=== PATIENT | male | born 1965 | race Caucasian/White ===

== ENCOUNTER 2017-02-25 09:51 | Inpatient (IN) | payer MEDICARE, MEDICAID ==
[~2017-02-25 09:51] MED LIST: ASPIRIN325 MG PO; ATENOLOL100 MG PO; BACLOFEN10 M1 PO; BYSTOLIC10 M1 PO; COPAXONE IM; COPAXONE20 MG/1 ML SC; COZAAR100 MG PO; CYMBALTA60 MG PO; FISH OIL 1,0001 CA1 PO; GINKGO BILOBA PO; GLIPIZIDE XL10 MG PO; GLUCOPHAGE1000 MG; GLUCOPHAGE1000 MG PO; GLUCOTROL10 MG; GLYBURIDE5 MG; IRON325 M1 PO; IRON325 M3 PO; LANTUS100 U/ML SC; LASIX40 M1 PO; LIPITOR20 MG; LIPITOR80 M1 PO; LISINOPRIL10 MG; LISINOPRIL40 MG PO; LUNESTA3 MG PO; NATURAL VITA100 UNIT PO; NORCO 5/325 TAB1 TAB PO; NORVASC10 M2 PO; PLAVIX75 MG PO; PRAVACHOL40 MG; REQUIP0.5 M1 PO; RESTORIL30 M1 PO; SKELAXIN PO; TRAMADOL HCL50 MG PO; TRESIBA FL200 UNIT/1 SC; VENTOLIN HFA18 GM IH; VIAGRA100 MG PO; VITAMIN C500 M3 PO; VITAMIN D1000 UNI3 PO
[2017-02-25 10:31] LABS: BASO % 0.1 % (0-2); EOS % 0.1 % (0-7); HCT-HEMATOCRIT 38.1 % (36.0-53.5); HGB-HEMOGLOBIN 12.3 gm/dl (13.5-17.0); IMMATURE GRANULOCYTES ABSOLUTE 0.05 tho/cmm (0-0.03); IMMATURE GRANULOCYTES PERCENT 0.2 % (0-0.3); LYMPH % 3.9 % (20-45); LYMPH ABSOLUTE COUNT 0.8 tho/cmm (0.8-4.5); MCH (MEAN CORPUSCULAR HGB) 23.9 pg (28.0-32.0); MCHC MEAN CORPUSCULAR HGB CONC 32.3 % (32.0-36.0); MCV (MEAN CELL VOLUME) 74.1 fl (82.0-96.0); MEAN PLATELET VOLUME 11.6 cmc (9.4-12.4); MONO % 8.8 % (0-12); MONOCYTE ABSOLUTE COUNT 1.8 tho/cmm (0.0-1.2); NEUTROPHIL ABSOLUTE COUNT 17.5 tho/cmm (1.6-8.0); NEUTROPHIL-AUTOMATED 17.5 tho/cmm (1.6-8.0); NEUTROPHILS % 86.9 % (40-80); PLATELET COUNT 209 tho/cmm (150-450); RED BLOOD COUNT 5.14 mil/cmm (4.40-5.70); RED CELL DISTRIBUTION WIDTH 15.2 % (12.4-16.4); WHITE BLOOD COUNT 20.1 tho/cmm (4.0-10.0)
[2017-02-25 10:32] LABS: KETONE-BETA (WHOLE BLOOD) 0.4 mmol/L (0.0-0.6)
[2017-02-25] MEDS ORDERED: PRINIVIL10 M1 PO (10:37)
[2017-02-25] MEDS ORDERED: VITAMIN D31000 UNI4 PO (10:39)
[2017-02-25 10:56] LABS: ALB/GLOB RATIO 0.8 (0.8-2.0); ALBUMIN 3.8 g/dl (3.5-5.0); ALKALINE PHOSPHATASE 120 U/L (33-138); ALT/SGPT 21 U/L (12-78); AST/SGOT 18 U/L (10-40); BILIRUBIN,TOTAL 0.4 mg/dl (0.0-1.5); BLOOD UREA NITROGEN 67 mg/dl (6-24); CALCIUM 9.1 mg/dl (8.5-10.5); CARBON DIOXIDE-VENOUS 22 mmol/L (22-32); CHLORIDE 99 mmol/l (96-110); GLUCOSE 192 mg/dL (70-110); SODIUM 135 mmol/L (135-145); eGFR VALUE FOR BLACK 5 mL/Min
[2017-02-25 10:58] LABS: ANION GAP 20 mmol/L (0-20)
[2017-02-25 10:59] LABS: POTASSIUM 6.3 mmol/L (3.7-5.1)
[2017-02-25] MEDS ORDERED: FERRIC CITRATE210 MG PO (11:22)
[2017-02-25] MEDS ORDERED: OXYCODONE-ACET1 EAC3 PO (11:24)
[2017-02-25] MEDS ORDERED: PLAVIX75 M1 PO (11:25)
[2017-02-25] MEDS ORDERED: LIPITOR80 M1 PO (11:27)
[2017-02-25 23:01] LABS: PROCALCITONIN 0.52 ng/ml (0.05-0.09)
[2017-02-26 06:18] LABS: BASO % 0.2 % (0-2); EOS % 0.2 % (0-7); HCT-HEMATOCRIT 36.7 % (36.0-53.5); HGB-HEMOGLOBIN 11.7 gm/dl (13.5-17.0); IMMATURE GRANULOCYTES ABSOLUTE 0.02 tho/cmm (0-0.03); IMMATURE GRANULOCYTES PERCENT 0.1 % (0-0.3); LYMPH % 10.5 % (20-45); LYMPH ABSOLUTE COUNT 1.5 tho/cmm (0.8-4.5); MCH (MEAN CORPUSCULAR HGB) 23.5 pg (28.0-32.0); MCHC MEAN CORPUSCULAR HGB CONC 31.9 % (32.0-36.0); MCV (MEAN CELL VOLUME) 73.7 fl (82.0-96.0); MEAN PLATELET VOLUME 11.5 cmc (9.4-12.4); MONO % 10.2 % (0-12); MONOCYTE ABSOLUTE COUNT 1.4 tho/cmm (0.0-1.2); NEUTROPHILS % 78.8 % (40-80); PLATELET COUNT 182 tho/cmm (150-450); RED BLOOD COUNT 4.98 mil/cmm (4.40-5.70); RED CELL DISTRIBUTION WIDTH 15.2 % (12.4-16.4)
[2017-02-26 06:27] LABS: BLOOD UREA NITROGEN 34 mg/dl (6-24); CALCIUM 8.8 mg/dl (8.5-10.5); CARBON DIOXIDE-VENOUS 26 mmol/L (22-32); CHLORIDE 97 mmol/l (96-110); GLUCOSE 167 mg/dL (70-110); MAGNESIUM 2.3 mg/dl (1.8-2.6); PHOSPHOROUS 5.3 mg/dl (2.5-4.9); SODIUM 133 mmol/L (135-145); eGFR VALUE FOR BLACK 9 mL/Min
[2017-02-26 06:30] LABS: ANION GAP 15 mmol/L (0-20); CREATININE 7.15 mg/dl (0.60-1.30); POTASSIUM 5.3 mmol/L (3.7-5.1)
[2017-02-26 10:08] LABS: ALBUMIN 3.8 g/dl (3.5-5.0); ALKALINE PHOSPHATASE 128 U/L (33-138); ALT/SGPT 24 U/L (12-78); ANION GAP 19 mmol/L (0-20); AST/SGOT 20 U/L (10-40); BILIRUBIN,TOTAL 0.4 mg/dl (0.0-1.5); BLOOD UREA NITROGEN 34 mg/dl (6-24); CALCIUM 8.5 mg/dl (8.5-10.5); CARBON DIOXIDE-VENOUS 24 mmol/L (22-32); CHLORIDE 99 mmol/l (96-110); CREATININE 6.95 mg/dl (0.60-1.30); GLUCOSE 158 mg/dL (70-110); POTASSIUM 5.4 mmol/L (3.7-5.1); SODIUM 137 mmol/L (135-145); eGFR VALUE FOR BLACK 10 mL/Min
[2017-02-26 10:28] LABS: TSH-THYROID STIMULATING HORM. 0.96 uIU/ml (0.40-3.80)
[2017-02-26] MEDS ORDERED: SKELAXIN800 M3 PO (17:06)
[2017-02-27 06:07] LABS: ANION GAP 20 mmol/L (0-20); CARBON DIOXIDE-VENOUS 22 mmol/L (22-32); CHLORIDE 95 mmol/l (96-110); MAGNESIUM 2.4 mg/dl (1.8-2.6); POTASSIUM 5.7 mmol/L (3.7-5.1); SODIUM 131 mmol/L (135-145); eGFR VALUE FOR BLACK 6 mL/Min
[2017-02-27 06:09] LABS: BLOOD UREA NITROGEN 67 mg/dl (6-24); CREATININE 9.86 mg/dl (0.60-1.30); GLUCOSE 268 mg/dL (70-110)
[2017-02-28 05:49] LABS: INR 1.1 INR (0.9-1.1); PROTHROMBIN TIME 12.4 SECONDS (9.0-13.6)
[2017-02-28 05:58] LABS: ANION GAP 22 mmol/L (0-20); BLOOD UREA NITROGEN 62 mg/dl (6-24); CALCIUM 8.8 mg/dl (8.5-10.5); CARBON DIOXIDE-VENOUS 23 mmol/L (22-32); CHLORIDE 95 mmol/l (96-110); CREATININE 8.41 mg/dl (0.60-1.30); GLUCOSE 267 mg/dL (70-110); PHOSPHOROUS 6.6 mg/dl (2.5-4.9); POTASSIUM 5.2 mmol/L (3.7-5.1); SODIUM 135 mmol/L (135-145); eGFR VALUE FOR BLACK 8 mL/Min
[2017-03-01 04:58] LABS: ANION GAP 23 mmol/L (0-20); BLOOD UREA NITROGEN 92 mg/dl (6-24); CALCIUM 8.2 mg/dl (8.5-10.5); CARBON DIOXIDE-VENOUS 20 mmol/L (22-32); CHLORIDE 93 mmol/l (96-110); GLUCOSE 343 mg/dL (70-110); POTASSIUM 5.9 mmol/L (3.7-5.1); SODIUM 130 mmol/L (135-145); eGFR VALUE FOR BLACK 6 mL/Min
[2017-03-02 04:20] LABS: HCT-HEMATOCRIT 28.1 % (36.0-53.5); HGB-HEMOGLOBIN 9.2 gm/dl (13.5-17.0); IMMATURE GRANULOCYTES ABSOLUTE 0.08 tho/cmm (0-0.03); IMMATURE GRANULOCYTES PERCENT 0.4 % (0-0.3); LYMPH % 3.1 % (20-45); LYMPH ABSOLUTE COUNT 0.6 tho/cmm (0.8-4.5); MCH (MEAN CORPUSCULAR HGB) 23.7 pg (28.0-32.0); MCHC MEAN CORPUSCULAR HGB CONC 32.7 % (32.0-36.0); MCV (MEAN CELL VOLUME) 72.4 fl (82.0-96.0); MEAN PLATELET VOLUME 11.7 cmc (9.4-12.4); MONO % 9.9 % (0-12); MONOCYTE ABSOLUTE COUNT 2.1 tho/cmm (0.0-1.2); NEUTROPHIL ABSOLUTE COUNT 18.1 tho/cmm (1.6-8.0); NEUTROPHIL-AUTOMATED 18.1 tho/cmm (1.6-8.0); NEUTROPHILS % 86.6 % (40-80); PLATELET COUNT 186 tho/cmm (150-450); RED BLOOD COUNT 3.88 mil/cmm (4.40-5.70); RED CELL DISTRIBUTION WIDTH 14.8 % (12.4-16.4); WHITE BLOOD COUNT 20.9 tho/cmm (4.0-10.0)
[2017-03-02 04:33] LABS: BLOOD UREA NITROGEN 77 mg/dl (6-24); CALCIUM 7.6 mg/dl (8.5-10.5); CARBON DIOXIDE-VENOUS 24 mmol/L (22-32); CHLORIDE 96 mmol/l (96-110); GLUCOSE 326 mg/dL (70-110); MAGNESIUM 1.8 mg/dl (1.8-2.6); SODIUM 133 mmol/L (135-145)
[2017-03-02 04:48] LABS: ANION GAP 18 mmol/L (0-20); CREATININE 6.96 mg/dl (0.60-1.30); POTASSIUM 4.9 mmol/L (3.7-5.1); eGFR VALUE FOR BLACK 9 mL/Min
[2017-03-03 07:02] LABS: HGB-HEMOGLOBIN 6.7 gm/dl (13.5-17.0)
[2017-03-03 07:46] LABS: PROCALCITONIN 0.47 ng/ml (0.05-0.09)
[2017-03-03 07:58] LABS: HGB-HEMOGLOBIN 6.7 gm/dl (13.5-17.0); IMMATURE GRANULOCYTES ABSOLUTE 0.23 tho/cmm (0-0.03); IMMATURE GRANULOCYTES PERCENT 0.8 % (0-0.3); LYMPH % 5.3 % (20-45); LYMPH ABSOLUTE COUNT 1.5 tho/cmm (0.8-4.5); MCH (MEAN CORPUSCULAR HGB) 24.1 pg (28.0-32.0); MCV (MEAN CELL VOLUME) 74.8 fl (82.0-96.0); MEAN PLATELET VOLUME 12.5 cmc (9.4-12.4); MONO % 6.8 % (0-12); MONOCYTE ABSOLUTE COUNT 1.9 tho/cmm (0.0-1.2); NEUTROPHIL ABSOLUTE COUNT 24.3 tho/cmm (1.6-8.0); NEUTROPHIL-AUTOMATED 24.3 tho/cmm (1.6-8.0); NEUTROPHILS % 87.1 % (40-80); PLATELET COUNT 183 tho/cmm (150-450); RED BLOOD COUNT 2.78 mil/cmm (4.40-5.70); RED CELL DISTRIBUTION WIDTH 14.9 % (12.4-16.4); WHITE BLOOD COUNT 27.9 tho/cmm (4.0-10.0)
[2017-03-03 07:59] LABS: HCT-HEMATOCRIT 20.8 % (36.0-53.5); MCHC MEAN CORPUSCULAR HGB CONC 32.2 % (32.0-36.0)
[2017-03-03 08:10] LABS: CHLORIDE 94 mmol/l (96-110); GLUCOSE 446 mg/dL (70-110); SODIUM 133 mmol/L (135-145); eGFR VALUE FOR BLACK 6 mL/Min
[2017-03-03 08:13] LABS: ANION GAP 34 mmol/L (0-20); BLOOD UREA NITROGEN 146 mg/dl (6-24); CARBON DIOXIDE-VENOUS 11 mmol/L (22-32)
[2017-03-03 08:15] LABS: POTASSIUM 6.2 mmol/L (3.7-5.1)
[2017-03-03 11:48] LABS: ARTERIAL BLD GAS O2 SATURATION 98 % (95-98); ARTERIAL BLOOD GAS PCO2 30 mmHg (32-45); ARTERIAL PO2 184 mmHg (70-100)
[2017-03-03 11:49] LABS: BLOOD GAS BASE EXCESS -27 mM/L (-/+3)
[2017-03-03 11:51] LABS: BICARBONATE <9 mmol/L (21-28)
[2017-03-03 11:52] LABS: ABG CO2 ARTERIAL <9 mmol/L (21-27)
[2017-03-03 11:56] LABS: HGB-HEMOGLOBIN 6.2 gm/dl (13.5-17.0); MCH (MEAN CORPUSCULAR HGB) 25.3 pg (28.0-32.0); MEAN PLATELET VOLUME 12.9 cmc (9.4-12.4); NEUTROPHIL-AUTOMATED 17.9 tho/cmm (1.6-8.0); PLATELET COUNT 140 tho/cmm (150-450); RED BLOOD COUNT 2.45 mil/cmm (4.40-5.70); RED CELL DISTRIBUTION WIDTH 16.3 % (12.4-16.4); WHITE BLOOD COUNT 25.1 tho/cmm (4.0-10.0)
[2017-03-03 11:58] LABS: HCT-HEMATOCRIT 19.9 % (36.0-53.5); MCHC MEAN CORPUSCULAR HGB CONC 31.2 % (32.0-36.0); MCV (MEAN CELL VOLUME) 81.2 fl (82.0-96.0)
[2017-03-03 12:11] LABS: BLOOD UREA NITROGEN 138 mg/dl (6-24); CALCIUM 7.7 mg/dl (8.5-10.5); CHLORIDE 102 mmol/l (96-110); CREATININE 9.87 mg/dl (0.60-1.30); GLUCOSE 297 mg/dL (70-110); SODIUM 140 mmol/L (135-145); eGFR VALUE FOR BLACK 6 mL/Min
[2017-03-03 12:13] LABS: ANION GAP 39 mmol/L (0-20)
[2017-03-03 12:16] LABS: CARBON DIOXIDE-VENOUS 6 mmol/L (22-32); POTASSIUM 7.2 mmol/L (3.7-5.1)
[2017-03-03 12:26] LABS: BAND % 5 % (0-20); BAND ABSOLUTE COUNT 1.3 tho/cmm (0-2.0)
[2017-03-03 12:28] LABS: WBC MORPHOLOGY TOXIC GRANULATION
[2017-03-03 13:28] LABS: ABG CO2 ARTERIAL 7 mmol/L (21-27); ARTERIAL BLD GAS O2 SATURATION 98 % (95-98); ARTERIAL BLOOD GAS PCO2 43 mmHg (32-45); ARTERIAL PO2 431 mmHg (70-100); BICARBONATE 6 mmol/L (21-28); BLOOD GAS BASE EXCESS -27 mM/L (-/+3); PH <6.82 Units (7.35-7.45)
[2017-03-03 14:01] LABS: ARTERIAL BLD GAS O2 SATURATION 98 % (95-98); ARTERIAL BLOOD GAS PCO2 39 mmHg (32-45); BICARBONATE 7 mmol/L (21-28); BLOOD GAS BASE EXCESS -24 mM/L (-/+3)
[2017-03-03 14:04] LABS: ABG CO2 ARTERIAL 9 mmol/L (21-27); ARTERIAL PO2 302 mmHg (70-100); PH 6.91 Units (7.35-7.45)
[2017-03-03 14:30] LABS: ABG CO2 ARTERIAL 13 mmol/L (21-27); ARTERIAL BLD GAS O2 SATURATION 99 % (95-98); ARTERIAL BLOOD GAS PCO2 39 mmHg (32-45); ARTERIAL PO2 311 mmHg (70-100); BICARBONATE 12 mmol/L (21-28); BLOOD GAS BASE EXCESS -16 mM/L (-/+3)
[2017-03-03 14:31] LABS: PH 7.12 Units (7.35-7.45)
--- NOTE | 2017-03-03 18:37 | NUR ---
03/03: PT TX FROM PACU AT 1430, REPORT RECEIVED. DR STOLL IN ROOM GIVING ORDERS. HD INITIATED BY DCL RN. PT ART BP READINGS IN 40-50S AND CUFF PRESSURES IN 70-80S. LEVO AND VASO INFUSING. ORDER FOR 2 MORE UNITS OF PRBC RECEIVED. FAMILY AT BEDSIDE, MOTHER UPSET AND VERBALIZES PT "WOULD NEVER WANT ANY OF THESE TUBES". DR STOLL AND CONSTANZA NOTIFIED OF PT'S WISHES TO WITHDRAW CARE, PALLIATIVE CARE CONSULTED. ANAMIKA VANG AND DR LEÓN IN TO TALK TO FAMILY EXTENSIVELY. FAMILY DECIDED TO STOP HD AND MAKE PT DNR AND TO WITHDRAW ONCE MORE FAMILY ARRIVED. RN NOTED HR DROPPING TO 20S AND O2 SAT DROPPING. FAMILY NOTIFIED OF PT'S DECLINE AND ENCOURAGED TO BE WITH PATIENT. VASOPRESSORS TURNED OFF PER DR LEÓN'S ORDER. PT WENT ASYSTOLE AND AT [address] LEÓN PRESENT TO ALSO PRONOUNCE AND PROVIDE FAMILY SUPPORT. PASTORAL CARE AT BEDSIDE TO AIDE IN SUPPORTING FAMILY.
== END 2017-03-03 18:59 | disposition expired | DRG 871 ==
LOC: EDMED 09:51 → EMR2 16:25 → CAR1 16:30 → 5WF 02-28 18:00 → 5WE 03-02 12:32 → PACU 03-03 11:18 → CCU 03-03 13:59
PROVIDERS: Anesthesiology; Emergency Medicine; Family Medicine; Internal Medicine Nephrology; Physician Assistant Medical; Psychiatry & Neurology Neurology; ADMIT Internal Medicine
PROC: 0W3P8ZZ Control Bleeding in Gastrointestinal Tract, Via Natural or Artificial Opening Endoscopic (ICD-10-PCS; principal; 2017-02-26)
PROC: 05HC33Z Insertion of Infusion Device into Left Basilic Vein, Percutaneous Approach (ICD-10-PCS; 2017-03-03)
DX: A41.9 Sepsis, unspecified organism (principal); N18.6 End stage renal disease; R57.1 Hypovolemic shock; K25.4 Chronic or unspecified gastric ulcer with hemorrhage; E87.2 Acidosis; I12.0 Hypertensive chronic kidney disease with stage 5 chronic kidney disease or end stage renal disease; E11.9 Type 2 diabetes mellitus without complications; D63.1 Anemia in chronic kidney disease; T82.7XXA Infection and inflammatory reaction due to other cardiac and vascular devices, implants and grafts, initial encounter; E87.1 Hypo-osmolality and hyponatremia; Z79.02 Long term (current) use of antithrombotics/antiplatelets; E87.5 Hyperkalemia; I73.9 Peripheral vascular disease, unspecified; G35 Multiple sclerosis; I25.10 Atherosclerotic heart disease of native coronary artery without angina pectoris; Y83.2 Surgical operation with anastomosis, bypass or graft as the cause of abnormal reaction of the patient, or of later complication, without mention of misadventure at the time of the procedure; Z79.4 Long term (current) use of insulin; Z87.891 Personal history of nicotine dependence; I25.2 Old myocardial infarction
CPT/HCPCS: C1751; G0257; G0378; G8978-GP-CK; G8979-GP-CJ; G8987-GO-CK; G8988-GO-CJ; G8989-GO-CK; J0610; J0690; J0885; J1265; J1815; J2405; J2930; J3370; J7030; J7040; J7050; P9016; P9045